=== PATIENT | male | born 1995 | race Caucasian/White ===

== ENCOUNTER 2018-09-25 18:16 | Emergency (ER) | payer OTHER, SELFPAY ==
--- NOTE | 2018-09-25 18:21 | ED_ITS ---
HPI - Syncope General Chief Complaint: Syncope Stated Complaint: Syncope Time Seen by Provider: 09/25/18 18:18 Source: patient, family and EMS Mode of arrival: EMS Limitations: no limitations History of Present Illness HPI narrative: 22-year-old male nonsmoker with benign medical history presents with a chief complaint of an accidental laceration to the palmar surface of his left hand with a sharp blade at work. Upon the seeing and feeling the laceration the patient became very quickly and profoundly dizzy, weak and lightheaded and suffered a syncopal episode in which she fell striking his chin on the ground and then his scalp. He does not take any blood thinners and denies use of alcohol or street drugs. Soon thereafter he returned to his baseline and has had no confusion, repetitive questioning or vomiting. He denies any head neck or back pain. He denies any malocclusion. The patient does report rather significant episodes of vagal syncope in the past MD complaint: felt faint Onset (ago): minute(s) -: second(s) Prodromal symptoms: vision changes, lightheaded and nausea/vomiting Witnessed: yes - by bystander Context: related to severe pain Injuries sustained associated with event: face and head Current symptoms: none History: previous syncopal episode Treatments prior to arrival: IV fluids Related Data Home Medications Medication Instructions Recorded Confirmed No Known Home Medications 09/25/18 09/25/18 Allergies Allergy/AdvReac Type Severity Reaction Status Date / Time No Known Drug Allergies Allergy Verified 09/25/18 18:30 Review of Systems Constitutional Denies chills, Denies fever(s), Denies lethargy and Denies weakness Eyes Denies change in vision, Denies eye discharge, Denies irritation and Denies loss of vision ENT Ears, Nose, Mouth, and Throat: Denies change in voice, Denies neck pain and Denies sore throat Cardiovascular Denies chest pain, Reports syncope, Denies irregular heart rhythm, Reports lightheadedness, Denies palpitations, Denies dyspnea, Denies dyspnea on exertion and Denies orthopnea Respiratory Denies cough, Denies dyspnea, Denies dyspnea on exertion and Denies wheezing Gastrointestinal Gastrointestinal: Denies abdominal pain, Denies change in bowel habits, Denies diarrhea, Denies nausea and Denies vomiting Genitourinary Denies hematuria, Denies flank pain, Denies urinary incontinence and Denies urinary urgency Musculoskeletal Denies neck pain Integumentary/Breasts Denies pruritus, Denies erythema, Denies rash and Reports wounds Neurologic Denies confusion, Reports syncope, Denies loss of vision and Denies weakness Psychiatric Denies anxiety, Denies confusion, Denies depression, Denies homicidal ideation and Denies suicidal ideation Endocrine Denies palpitations Hematologic/Lymphatic Denies easy bruising Allergic/Immunologic Denies wheezing PFSH Social History Smoking Status: Never smoker Social History Smoking Status: Never smoker Exam Narrative Exam Narrative: GENERAL: 22-year-old male appears stated age, and in no obvious or significant distress. GCS 15 HEAD: Abrasion on chin, no laceration. Scalp hematoma without evidence of depressed skull fracture EYES: Pupils equal round and reactive. Extraocular motions intact. No scleral icterus. No injection or drainage. ENT: No jaw clicking, team J tenderness or malocclusion Nose without bleeding, purulent drainage or septal hematoma. Throat without erythema, tonsillar hypertrophy or exudate. Uvula midline. Airway patent. NECK: Trachea midline. No JVD or lymphadenopathy. Supple, nontender, no meningeal signs. CARDIOVASCULAR: Regular rate and rhythm without murmurs, gallops, or rubs. RESPIRATORY: Clear to auscultation. Breath sounds equal bilaterally. No wheezes, rales, or rhonchi. GASTROINTESTINAL: Abdomen soft, non-tender, nondistended. No hepato- splenomegaly, or palpable masses. No guarding. EXTREMITIES: Very small nonsuturable laceration and palmar surface of left hand No clubbing, cyanosis, or edema. No joint tenderness, effusion, or edema noted. BACK: Nontender without deformity or crepitance. No flank tenderness. NEURO: AOx3. SKIN: No rash or erythema. Initial Vital Signs Initial Vital Signs: Vital Signs Temperature 98.4 F 09/25/18 18:24 Pulse Rate 65 09/25/18 18:24 Respiratory Rate 13 09/25/18 18:24 Blood Pressure 130/63 09/25/18 18:24 Pulse Oximetry 100 09/25/18 18:24 MDM - Syncope MDM Narrative Medical decision making narrative: 22-year-old male with history of vasovagal syncope presents with a recurrent episode of syncope after lacerating his left hand. This wound is minimal and does not require repair. Patient has chin and scalp hematoma and abrasion which do not require repair. No malocclusion or suggestion of dental fracture. Patient has returned to normal mental status, [place] head CT rules considered. No imaging indicated. Patient with normal orthostatic vital signs and symptomatic ambulation trial. Patient given return precautions. Patient and family have questions answered to their apparent satisfaction Discharge Plan Departure Patient Disposition: Home Clinical Impression: Vasovagal syncope Contusion Qualifiers: Encounter type: initial encounter Contusion area: head Contusion of head detail: scalp Qualified Code(s): S00.03XA - Contusion of scalp, initial encounter Discharge Date/Time: 09/25/18 19:47 Interventions: ED Discharge Assessment Last Done: 09/25/18 20:02 Activity Restrictions/Additional Instructions: *You have been diagnosed with [vasovagal syncope secondary to the laceration on her left hand with chin and scalp contusions] *What to do: *Take medications as directed: Tylenol or Motrin for pain *Follow up with your primary care provider in 2-3 days, call for an a ppointment. Let them know you were seen in the Emergency Department and that we ask that you be seen in follow up *Return to ER if you should have any new, worsening or concerning symptoms Prescriptions: No Action No Known Home Medications RF: 0
[2018-09-25 18:24] VITALS: BP 130/63; PULSE 65; RESP 13; TEMP 36.9; O2SAT 100
[2018-09-25 19:00] VITALS: BP 125/58; PULSE 63; RESP 16; O2SAT 98
[2018-09-25 19:17] VITALS: BP 121/66; BP 124/51; BP 125/58; PULSE 65; PULSE 71; PULSE 84; RESP 18; O2SAT 97
--- NOTE | 2018-09-25 19:34 | PC.NURSE ---
Patient has small abrasion to left palm from broken wine glass, had syncopal episode with lowBP and low HR after and resolved wihtin minutes of EMS arrival. Has history of same episode.
[2018-09-25 19:52] VITALS: BP 97/57; PULSE 60; RESP 19; O2SAT 99
[2018-09-25 20:02] VITALS: BP 97/57; PULSE 59; RESP 24; O2SAT 100
== END 2018-09-25 19:47 | disposition home or self-care (01) ==
PROVIDERS: Emergency Provider Emergency Medicine
DX: R55 Syncope and collapse (principal); S00.03XA Contusion of scalp, initial encounter; W19.XXXA Unspecified fall, initial encounter
CPT/HCPCS: 93005; 99282; 99283